=== PATIENT | female | born 1950 | race Caucasian/White ===

== ENCOUNTER → 2025-05-06 09:56 | Outpatient (REF) | payer MEDICARE, SELFPAY | LOC: WDC 09:56 | PROVIDERS: ATTENDING PHYSICIAN Family Medicine | DX: Z12.31 Encounter for screening mammogram for malignant neoplasm of breast (principal); Z78.0 Asymptomatic menopausal state | CPT/HCPCS: 77063; 77067; 77080 ==

== ENCOUNTER → 2025-05-19 08:55 | Outpatient (REF) | payer MEDICARE, SELFPAY | LOC: WDC 08:55 | PROVIDERS: ATTENDING PHYSICIAN Family Medicine | DX: R92.8 Other abnormal and inconclusive findings on diagnostic imaging of breast (principal) | CPT/HCPCS: 76642 ==

== ENCOUNTER → 2025-05-29 07:46 | Outpatient (REF) | payer MEDICARE, SELFPAY ==
--- NOTE | 2025-05-29 13:19 | OID.BR.INTR ---
[facility] Breast Navigator - Initial
- -
Date of Contact: 05/29/25
Met with patient. Patient given written information on navigator service available at [facility]. Will follow up as needed per protocol.
== END ==
LOC: WDC 07:46
PROVIDERS: ATTENDING PHYSICIAN Family Medicine
DX: N63.11 Unspecified lump in the right breast, upper outer quadrant (principal)
CPT/HCPCS: 19083; 88305; 88341; 88360; A4648

== ENCOUNTER → 2025-06-16 12:41 | Outpatient (REF) | payer MEDICARE, SELFPAY | LOC: WDC 12:41 | PROVIDERS: ATTENDING PHYSICIAN Surgery | DX: C50.411 Malignant neoplasm of upper-outer quadrant of right female breast (principal) | CPT/HCPCS: 19285; A4648 ==

== ENCOUNTER 2025-06-17 06:14 | Day surgery (SDC) | payer MEDICARE, SELFPAY ==
[2025-06-09 14:24] VITALS: BMI 26.2
[2025-06-17] VITALS (7 sets, daily range): BP systolic 139–183; BP diastolic 63–108; BMI 26.2
[2025-06-17] MEDS: NORMOSOL-R/PLASMALYTE-A 1000 IV (10:01)
[2025-06-17] MEDS: TYLENOL 1000 MG PO (10:01)
[2025-06-17] MEDS: LOVENOX 40 MG SC (10:22)
--- NOTE | 2025-06-17 11:44 | W.IMMPOSTOP ---
Surgical Immed Post Op Note
-
Primary Surgeon: Jose
Assisting Surgeon: None
Pre-op Diagnosis: Right breast ca
Post-op Diagnosis: Right breast ca
Procedure Performed: Right localized lumpectomy
Anesthesia Type: TIVA
Specimen / Cultures: Right lumpectomy and margins
Estimated Blood Loss: 4cc
Complications: None
Operative Findings: Mass, clip and reflector in specimen
--- NOTE | 2025-06-17 11:46 | OR.RPT ---
Operative Report
Operative Report
Date of procedure: 06/17/2025
Surgeon: Jose
Procedure: Right localized lumpectomy
Preoperative diagnosis: Right breast carcinoma
Postoperative diagnosis: Right breast carcinoma
The patient is a 74-year-old female with image detected early stage favorable right breast carcinoma who presents for right localized lumpectomy. She met criteria to forego axillary sampling. On the day prior to the procedure she presented to the
[place] [facility] where a Robyn reflector was placed at the tumor site.
On the day of the procedure she presented to same-day surgical services. She was prepped and verified site and procedure. DVT and antibiotic prophylaxis were provided. She was transferred to the operating room and in the supine position
intravenous sedation was lower.
The right breast were prepped and draped in the usual sterile fashion and all team members performed an appropriate timeout procedure. All tissues were anesthetized with 1% lidocaine plain. A curvilinear incision overlying the area of highest Robyn
signal was made sharply with the blade. Dissection was carried down to the tumor site using the cautery and a wide lumpectomy was performed using the cautery. Time out of body was noted and the specimen was oriented for the pathologist. Specimen
radiography confirmed the presence of mass clip and reflector within it
Additional margins were harvested for permanent analysis from the posterior, medial, superior, lateral, inferior, and anterior dimensions. These were sent under separate cover. Hemostasis was verified. Marcaine 0.5% plain was applied and
hemoclips were placed in the resection cavity. The wound was closed using simple interrupted 3-0 plain and deep intermediate and subcutaneous tissue and skin was closed with a running subcuticular 4-0 Monocryl. Surgical glue and sterile
compressive dressings were applied. All sponge needle and instrument counts were correct and the patient was transferred back to same-day surgical services for recovery
([id number])
== END 2025-06-17 13:28 | disposition home or self-care (01) ==
LOC: SDS 06:14
PROVIDERS: ATTENDING PHYSICIAN Surgery; FAMILY PHYSICIAN Family Medicine
DX: C50.411 Malignant neoplasm of upper-outer quadrant of right female breast (principal)
CPT/HCPCS: 19301; 76098; 88305; 88307; 88342; 88360

== ENCOUNTER → 2025-06-26 16:27 | Outpatient (REF) | payer MEDICARE, SELFPAY | LOC: RAD 16:27 | PROVIDERS: ATTENDING PHYSICIAN Surgery Plastic and Reconstructive Surgery; FAMILY PHYSICIAN Family Medicine | DX: L76.32 Postprocedural hematoma of skin and subcutaneous tissue following other procedure (principal) | CPT/HCPCS: 71260; Q9967 ==

== ENCOUNTER 2025-10-28 06:16 | Outpatient (RCR) | payer MEDICARE, SELFPAY | END 2025-10-28 23:59 | disposition home or self-care (01) | LOC: RPT 06:16 | PROVIDERS: ATTENDING PHYSICIAN Family Medicine Geriatric Medicine; FAMILY PHYSICIAN Family Medicine | DX: C50.411 Malignant neoplasm of upper-outer quadrant of right female breast (principal); M85.80 Other specified disorders of bone density and structure, unspecified site; L90.5 Scar conditions and fibrosis of skin; Z73.6 Limitation of activities due to disability; M62.81 Muscle weakness (generalized); R29.3 Abnormal posture; M79.601 Pain in right arm; M81.0 Age-related osteoporosis without current pathological fracture | CPT/HCPCS: 97162; 97530 ==